=== PATIENT | female | born 1995 | race Caucasian/White ===

== ENCOUNTER → 2017-01-09 | Outpatient (CLI) | payer BC | END | disposition home or self-care (01) | LOC: RAD 17:09 | DX: J45.909 Unspecified asthma, uncomplicated (principal) ==

== ENCOUNTER → 2018-05-11 | Outpatient (CLI) | payer BC | END | disposition home or self-care (01) | LOC: CT 14:00 | DX: R59.0 Localized enlarged lymph nodes (principal); R10.30 Lower abdominal pain, unspecified ==

== ENCOUNTER → 2021-05-27 | Outpatient (CLI) | payer BC | END | disposition home or self-care (01) | LOC: MAMMO 05-26 13:00 | PROVIDERS: ATTEND Family Medicine | DX: R92.2 Inconclusive mammogram (principal) ==

== ENCOUNTER → 2021-11-24 | Outpatient (CLI) | payer BC | END | disposition home or self-care (01) | LOC: LAB 11:59 | PROVIDERS: ATTEND Family Medicine | DX: R73.9 Hyperglycemia, unspecified (principal); R20.0 Anesthesia of skin ==